=== PATIENT | female | born 1995 | race Caucasian/White ===

== ENCOUNTER → 2018-05-04 11:41 | Outpatient (CLI) | payer OTHER, MEDICAID, SELFPAY | PROVIDERS: Visit Provider Obstetrics & Gynecology | DX: Z34.91 Encounter for supervision of normal pregnancy, unspecified, first trimester (principal) | CPT/HCPCS: 87086 ==

== ENCOUNTER → 2018-05-04 11:45 | Outpatient (CLI) | payer OTHER, MEDICAID, SELFPAY ==
[2018-05-04 12:29] LABS: Add Manual Diff / Slide Review NO; Basophils Percent Auto 0.4 % (0-2); Eosinophils Percent Auto 1.4 % (2-4); Hematocrit 39.7 % (36-46); Lymphocytes Percent Auto 17.4 % (25-40); Mean Corpuscular HGB Conc 35.3 % (30-36); Mean Corpuscular Hemoglobin 31.6 PG (26-34); Mean Corpuscular Volume 89.7 fL (80-100); Monocytes Percent Auto 6.8 % (3-14); Neutrophils Absolute Auto 7000 /uL (3000-5900); Platelet Count 274 X10^3/uL (150-400); Red Blood Cell Count 4.43 X10^6/uL (4.0-5.2); Red Cell Distribution Width 12.5 % (11.6-14.8); White Blood Cell Count 9.5 X10^3/uL (4.5-11.0)
[2018-05-04 12:34] LABS: Appearance Urine UA CLEAR; Bilirubin Urine UA NEGATIVE (NEGATIVE); Color Urine UA YELLOW; Glucose Urine UA NEGATIVE (Normal); Ketones Urine UA NEGATIVE (NEGATIVE); Leukocyte Esterase Urine UA NEGATIVE (NEGATIVE); Nitrite Urine UA Negative (Negative); Occult Blood Urine UA NEGATIVE (Negative); Protein Urine UA NEGATIVE (Negative); Urobilinogen Urine UA 0.2 E.U./dL (0.2)
[2018-05-04 17:04] LABS: Hepatitis B Surface Antigen NEGATIVE s/c (NEGATIVE); Rubella Antibody IgG 15.5 IU/mL (>15)
[2018-05-04 17:21] LABS: HIV 1 and 2 Antibody NEGATIVE (NEGATIVE); Hep C Virus Ab w/Reflex Quant NEGATIVE s/c (NEGATIVE)
[2018-05-05 14:31] LABS: HSV 2 IGG AB 6.21 index (< 0.90); HSV1IGG < 0.90 index (< 0.90)
[2018-05-11 14:51] LABS: Rapid Plasma Reagin NON REACTIVE
== END ==
PROVIDERS: Visit Provider Obstetrics & Gynecology
DX: Z34.91 Encounter for supervision of normal pregnancy, unspecified, first trimester (principal)
CPT/HCPCS: 36415; 80055; 81003; 86695; 86696; 86703; 86787; 86803; 86850; 86900; 86901; 87077; 87086

== ENCOUNTER → 2018-06-01 11:56 | Outpatient (CLI) | payer OTHER, MEDICAID, SELFPAY ==
[2018-06-08 09:28] LABS: Calc Gestational Age 17.7; Cigarette Smoker N; Donated Egg NOT GIVEN; Donor Egg Age NOT GIVEN; Estriol, Free 1.04 ng/mL; Inhibin A, Dimeric 113 pg/mL; Maternal Ethnicity NOT GIVEN; Maternal Weight 149 lbs; Number of Fetuses NOT GIVEN; Previous Pregnancy Down Syndro NOT GIVEN; hCG, MoM 0.66; hCG, Serum 16.6 IU/mL
== END ==
PROVIDERS: PCP Family Medicine; Visit Provider Obstetrics & Gynecology
DX: Z34.02 Encounter for supervision of normal first pregnancy, second trimester (principal)
CPT/HCPCS: 36415; 82105; 82677; 84702; 86336

== ENCOUNTER → 2018-06-29 10:32 | Outpatient (CLI) | payer OTHER, MEDICAID, SELFPAY ==
--- NOTE | 2018-06-29 10:34 | DI.US.S_ITS ---
PROCEDURE: US OB >= 14 WEEKS FETUS INDICATIONS: Anatomy Survey OUTSIDE/PRIOR DATING DATA: Last menstrual period (LMP): Unknown. LMP-based estimated date of delivery (VENICE): N./A. First dating scan (date and location): 05/04/18. Estimated date of delivery (VENICE) from first dating scan: 11/04/18. TECHNIQUE: Real-time scanning was performed of the fetus, with image documentation and biometric measurements. Endovaginal scanning: No COMPARISON: [facility], , OB >= 14 WEEKS FETUS, 06/01/2018, 11:47. FINDINGS: General: A single living intrauterine gestation is present. Presentation: Breech. Placenta: Placental position is anterior, without previa. Amniotic fluid index: 16.6 cm, normal range is 5-24 cm. heart rate: 140 beats per minute. Maternal cervical canal: 4.2 cm long. Normal lower limit is 2.5 cm. biometrics: Biparietal diameter: 21 weeks 3 days Head circumference: 21 weeks 3 days Abdominal circumference: 21 weeks 4 days Femur length: 21 weeks 6 days Estimated gestational age from initial scan: 21 weeks 5 days Composite gestational age from present scan: 21 weeks 4 days Estimated weight and percentile: 442 g; 42% Measurement variability for biometric dating: +/- 7 days from 14 weeks to 15 weeks 6 days gestation, +/- 10 days from 16 weeks to 21 weeks 6 days gestation, +/- 2 weeks from 22 weeks to 27 weeks 6 days gestation, +/- 3 weeks for 28 weeks gestation or later. weight reference: 4500 g or EFW >90/95% is considered macrosomia or large for gestational age. EFW <10% is small for gestational age. EFW 5% or less is considered intra-uterine growth restriction. Anatomic survey: Neuro: Ventricles are non-dilated at less than 10 mm. Cisterna magna is normal at 3-11 mm. Cerebellum is normal in size and morphology. Nuchal skin fold: Normal at less than 6 mm between 14-21 weeks gestational age. Face: Nose and lips, facial profile are normal. Spine: Not well-seen. Heart: 4-chambered heart is present, with normal ventricular outflow tracts. Diaphragm: Diaphragm is intact. Stomach: Left-sided stomach is present. Kidneys: No hydronephrosis. Normal is less than 5 mm in 2nd trimester, less than 7 mm in 3rd trimester. Cord: 3-vessel cord has orthotopic insertion. Bladder: Normal in size. Extremities: All 4 extremities identified. IMPRESSION: 1. Single living IUP redemonstrated and interval growth is normal. 2. spine not well seen otherwise normal anatomy. Dictated by: Prince HOYT Interpreted: Sandra Renner MD on 06/29/2018 at 11:33 Approved by: Sandra Renner M.D. on 06/29/2018 at 12:37
== END ==
PROVIDERS: PCP Family Medicine; Visit Provider Obstetrics & Gynecology
DX: Z34.02 Encounter for supervision of normal first pregnancy, second trimester (principal); Z3A.21 21 weeks gestation of pregnancy
CPT/HCPCS: 76811

== ENCOUNTER → 2018-08-03 12:09 | Outpatient (CLI) | payer OTHER, MEDICAID, SELFPAY ==
[2018-08-03 13:55] LABS: Hematocrit 36.9 % (36-46); Hemoglobin 12.9 g/dL (12.0-16.0)
[2018-08-03 14:07] LABS: GTT (PREG) 1 Hour PP 50gm Dose 65 mg/dL (76-139)
== END ==
PROVIDERS: PCP Family Medicine; Visit Provider Obstetrics & Gynecology
DX: Z34.02 Encounter for supervision of normal first pregnancy, second trimester (principal)
CPT/HCPCS: 36415; 82950; 85014; 85018

== ENCOUNTER → 2018-10-05 11:50 | Outpatient (CLI) | payer OTHER, MEDICAID, SELFPAY ==
[2018-10-06 16:33] LABS: Strep Grp B PCR NEG for Grp B Strep
== END ==
PROVIDERS: PCP Family Medicine; Visit Provider Obstetrics & Gynecology
DX: Z34.03 Encounter for supervision of normal first pregnancy, third trimester (principal)
CPT/HCPCS: 87653

== ENCOUNTER 2018-10-28 15:06 | Outpatient (CLI) | payer OTHER, MEDICAID, SELFPAY | END 2018-10-28 16:40 | disposition home or self-care (01) | LOC: LABOR 17:27 → OB 10-31 08:43 | PROVIDERS: PCP Family Medicine; Visit Provider Obstetrics & Gynecology | DX: Z34.03 Encounter for supervision of normal first pregnancy, third trimester (principal); Z3A.39 39 weeks gestation of pregnancy | CPT/HCPCS: 59025; G0378; G0379 ==

== ENCOUNTER 2018-11-02 18:02 | Observation (INO) | payer OTHER, MEDICAID, SELFPAY | END 2018-11-02 20:15 | disposition home or self-care (01) | LOC: LABOR 18:04 | PROVIDERS: Admitting Provider Specialist; Family Provider Obstetrics & Gynecology; PCP Obstetrics & Gynecology; Visit Provider Specialist | DX: Z34.93 Encounter for supervision of normal pregnancy, unspecified, third trimester (principal) | CPT/HCPCS: 59025; G0378; G0379 ==

== ENCOUNTER 2018-11-02 23:59 | Inpatient (IN) | payer OTHER, MEDICAID, SELFPAY ==
[2018-11-03 02:08] LABS: Add Manual Diff / Slide Review NO; Basophils Absolute Auto 0 /uL (0-100); Basophils Percent Auto 0.3 % (0-2); Eosinophils Absolute Auto 100 /uL (0-450); Eosinophils Percent Auto 0.9 % (2-4); Lymphocytes Absolute Auto 1600 /uL (1100-4500); Lymphocytes Percent Auto 11.6 % (25-40); Mean Corpuscular HGB Conc 33.5 % (30-36); Mean Corpuscular Hemoglobin 28.8 PG (26-34); Mean Corpuscular Volume 86.1 fL (80-100); Monocytes Absolute Auto 1000 /uL (0-900); Neutrophils Absolute Auto 11300 /uL (1500-7000); Neutrophils Percent Auto 80.2 % (50-75); Platelet Count 283 X10^3/uL (150-400); Red Blood Cell Count 4.53 X10^6/uL (4.0-5.2); Red Cell Distribution Width 13.6 % (11.6-14.8); White Blood Cell Count 14.1 X10^3/uL (4.5-11.0)
[2018-11-03 03:06] VITALS: BP 99/54
--- NOTE | 2018-11-03 04:02 | PM.OBHP.1 ---
OB HPI Date/Time Date of admission: 11/03/18 Date Patient Seen: 11/03/18 Time Patient Seen: 04:02 History of Present Condition Chief complaint: Evaluation of Labor : 1 Para: 0 Estimated Date of Delivery: 11/04/18 Estimated Gestational Age (weeks): 39 Narrative: Staci Hu is a 23 year old female admitted in active labor History of Present care: good care and initiated at week # (15) Dating criteria: LMP confirmed by 2nd trimester US Ultrasounds: normal mid trimester US Obstetrical complications: none Preadmission Labs Blood type: O (+) positive -: Antibody screen: negative, GBS status: negative, HBsAG: negative, HIV: negative, HSV 1: negative, HSV 2: positive and RPR/VDLR: negative -: Chlamydia screen: not detected and Gonorrhea screen: not detected -: Rubella: equivocal and Varicella: immune HCAB: negative PAP: Normal Quad screen: Normal 1 hr GTT: 65 Evaluation Evaluation Baseline heart rate: 120 Variability: Moderate (11-25) monitor accelerations: Present monitor decelerations: Episodic Contraction Frequency (minutes): 3 Uterine Contraction Intensity: Moderate Category of Tracing: II Cervical dilation (cm): 9 Cervical effacement (%): 100 station: -1 Laboratory results: Laboratory Tests 11/03/18 11/03/18 00:30 00:30 WBC 14.1 H RBC 4.53 Hgb 13.0 Hct 39.0 MCV 86.1 MCH 28.8 MCHC 33.5 RDW 13.6 Plt Count 283 Neut % (Auto) 80.2 H Lymph % (Auto) 11.6 L [place] % (Auto) 7.0 Eos % (Auto) 0.9 L Baso % (Auto) 0.3 Neut # (Auto) 61315 H Lymph # (Auto) 1600 [place] # (Auto) 1000 H Eos # (Auto) 100 Baso # (Auto) 0 Blood Type O Positive Antibody Screen Negative [facility] Social History Smoking Status: Former smoker Social History Smoking Status: Former smoker Meds Allergies Allergy/AdvReac Type Severity Reaction Status Date / Time almond AdvReac Verified 11/03/18 03:58 Review of Systems Review of Systems Patient denies any signs or symptoms of preeclampsia. No leakage of fluid. Good movement. All systems reviewed & are unremarkable except as noted in HPI and below Exam Vital Signs (past 8 hours): Initial blood pressure 143/73, pulse of 81, temperature 97?- 11/03/18 03:06 Blood Pressure 99/54 L Narrative Exam Narrative: HEENT exam within normal limits. Lungs are clear to auscultation percussion. Heart is regular rate and rhythm no S3-S4 or murmurs. Abdomen is soft, nontender. is vertex. Extremities with trace edema and nontender. Objective Labs Result Diagrams: 11/03/18 00:30 Labs: Laboratory Results - last 24 hr 11/03/18 11/03/18 00:30 00:30 WBC 14.1 H RBC 4.53 Hgb 13.0 Hct 39.0 MCV 86.1 MCH 28.8 MCHC 33.5 RDW 13.6 Plt Count 283 Neut % (Auto) 80.2 H Lymph % (Auto) 11.6 L [place] % (Auto) 7.0 Eos % (Auto) 0.9 L Baso % (Auto) 0.3 Neut # (Auto) 68103 H Lymph # (Auto) 1600 [place] # (Auto) 1000 H Eos # (Auto) 100 Baso # (Auto) 0 Blood Type O Positive Antibody Screen Negative Assessment and Plan (1) 39 weeks gestation of : Current visit: Yes Status: Acute Plan: Patient received an epidural catheter for pain control. Anticipate vaginal delivery.
--- NOTE | 2018-11-03 04:09 | P.HPOB_ITS ---
OB HPI Date/Time Date of admission: 11/03/18 Date Patient Seen: 11/03/18 Time Patient Seen: 04:02 History of Present Condition Chief complaint: Evaluation of Labor : 1 Para: 0 Estimated Date of Delivery: 11/04/18 Estimated Gestational Age (weeks): 39 Narrative: Staci Hu is a 23 year old female admitted in active labor History of Present care: good care and initiated at week # (15) Dating criteria: LMP confirmed by 2nd trimester US Ultrasounds: normal mid trimester US Obstetrical complications: none Preadmission Labs Blood type: O (+) positive -: Antibody screen: negative, GBS status: negative, HBsAG: negative, HIV: negative, HSV 1: negative, HSV 2: positive and RPR/VDLR: negative -: Chlamydia screen: not detected and Gonorrhea screen: not detected -: Rubella: equivocal and Varicella: immune HCAB: negative PAP: Normal Quad screen: Normal 1 hr GTT: 65 Evaluation Evaluation Baseline heart rate: 120 Variability: Moderate (11-25) monitor accelerations: Present monitor decelerations: Episodic Contraction Frequency (minutes): 3 Uterine Contraction Intensity: Moderate Category of Tracing: II Cervical dilation (cm): 9 Cervical effacement (%): 100 station: -1 Laboratory results: Laboratory Tests 11/03/18 11/03/18 00:30 00:30 WBC 14.1 H RBC 4.53 Hgb 13.0 Hct 39.0 MCV 86.1 MCH 28.8 MCHC 33.5 RDW 13.6 Plt Count 283 Neut % (Auto) 80.2 H Lymph % (Auto) 11.6 L [place] % (Auto) 7.0 Eos % (Auto) 0.9 L Baso % (Auto) 0.3 Neut # (Auto) 01917 H Lymph # (Auto) 1600 [place] # (Auto) 1000 H Eos # (Auto) 100 Baso # (Auto) 0 Blood Type O Positive Antibody Screen Negative [facility] Social History Smoking Status: Former smoker Social History Smoking Status: Former smoker Meds Allergies Allergy/AdvReac Type Severity Reaction Status Date / Time almond AdvReac Verified 11/03/18 03:58 Review of Systems Review of Systems Patient denies any signs or symptoms of preeclampsia. No leakage of fluid. Good movement. All systems reviewed & are unremarkable except as noted in HPI and below Exam Vital Signs (past 8 hours): Initial blood pressure 143/73, pulse of 81, temperature 97?- 11/03/18 03:06 Blood Pressure 99/54 L Narrative Exam Narrative: HEENT exam within normal limits. Lungs are clear to auscultation percussion. Heart is regular rate and rhythm no S3-S4 or murmurs. Abdomen is soft, nontender. is vertex. Extremities with trace edema and nontender. Objective Labs Result Diagrams: 11/03/18 00:30 Labs: Laboratory Results - last 24 hr 11/03/18 11/03/18 00:30 00:30 WBC 14.1 H RBC 4.53 Hgb 13.0 Hct 39.0 MCV 86.1 MCH 28.8 MCHC 33.5 RDW 13.6 Plt Count 283 Neut % (Auto) 80.2 H Lymph % (Auto) 11.6 L [place] % (Auto) 7.0 Eos % (Auto) 0.9 L Baso % (Auto) 0.3 Neut # (Auto) 49294 H Lymph # (Auto) 1600 [place] # (Auto) 1000 H Eos # (Auto) 100 Baso # (Auto) 0 Blood Type O Positive Antibody Screen Negative Assessment and Plan (1) 39 weeks gestation of : Current visit: Yes Status: Acute Plan: Patient received an epidural catheter for pain control. Anticipate vaginal delivery.
--- NOTE | 2018-11-03 05:24 | PM.OBPRVD ---
Delivery date: 11/03/18 Intrapartal events: None Cervical ripening method: none Induction method: none Delivery monitor: external FHT and external uterine Route of delivery: L&D Laceration Description: Periurethral - 1st Degree Delivery repair: chromic (3-0) Estimated blood loss (mL): 150 Anesthesia type: Epidural Narrative: Patient arrived on Labor and delivery in active labor. She received an epidural catheter for pain control. heart tones category 1 to category 2 throughout labor. She was AROM for clear fluid. She delivered spontaneously, over an intact perineum. The infant was placed on the maternal abdomen. After the cord stopped pulsating the cord was clamped, cut, and cord bloods obtained. The placenta delivered spontaneously, intact, with 3 vessels. There was a first-degree right labial tear that was repaired with 3 0 chromic suture. No cervical or vaginal tears. Estimated blood loss 150 cc. Both and mother doing well. Baby 1: gender: Female Presentation: vertex position: Right Occiput Anterior Placenta delivery description: Spontaneous cord vessel description: 3 Vessels score (1 min): 8 score (5 min): 9 Plan for aftercare: Routine care
[2018-11-03] MEDS: IBUPROFEN 600 MG TABLET PO ×2 (10:15→20:38)
[2018-11-03] MEDS: LANOLIN OINT 7 GM 1 APPLIC TOP (10:19)
[2018-11-03] MEDS: DERMOPLAST SPRAY 20% 60 ML 1 SPRAY TOP (10:19)
[2018-11-03] MEDS: HYDROCODONE/ACET 5/325 TABLET 2 TAB PO (22:30)
[2018-11-04 06:51] LABS: Add Manual Diff / Slide Review NO; Basophils Absolute Auto 100 /uL (0-100); Eosinophils Absolute Auto 300 /uL (0-450); Eosinophils Percent Auto 2.5 % (2-4); Hematocrit 38.6 % (36-46); Hemoglobin 12.9 g/dL (12.0-16.0); Lymphocytes Absolute Auto 2300 /uL (1100-4500); Lymphocytes Percent Auto 19.8 % (25-40); Mean Corpuscular HGB Conc 33.4 % (30-36); Mean Corpuscular Hemoglobin 28.9 PG (26-34); Mean Corpuscular Volume 86.5 fL (80-100); Monocytes Absolute Auto 900 /uL (0-900); Monocytes Percent Auto 7.8 % (3-14); Neutrophils Absolute Auto 8100 /uL (1500-7000); Neutrophils Percent Auto 68.9 % (50-75); Platelet Count 262 X10^3/uL (150-400); Red Blood Cell Count 4.47 X10^6/uL (4.0-5.2); Red Cell Distribution Width 14.2 % (11.6-14.8); White Blood Cell Count 11.8 X10^3/uL (4.5-11.0)
--- NOTE | 2018-11-04 07:42 | PM.OBDS.1 ---
Discharge Providers Date of admission: 11/02/18 23:59 Discharge Date: 11/04/18 Primary care physician: Nila Wood MD Consults: 11/03/18 05:52 Consult to Clinic Office Assistant Routine Comment: Discharge provider: Helen Marquez MD Summary Date Patient Seen: 11/04/18 Time Patient Seen: 07:52 Procedures: Epidural catheter, vaginal delivery, repair of first-degree labial laceration Hospital Course: Patient arrived on Labor and delivery in active labor. She received an epidural catheter for pain control. She had a vaginal delivery with repair of a first-degree labial laceration. Patient is well. She has no signs or symptoms of preeclampsia. Blood pressure is 125/74, pulse 74, temperature 98.0?. Patient's abdomen is soft, nontender. Uterus is firm, at U, nontender. Repair is intact. Mild lochia. Extremities with trace edema and nontender. Patient is rubella equivocal so will receive rubella vaccine prior to discharge. She is Rh positive. Peripartum Data Delivery Method: Natural Vaginal Laceration description: Periurethral - 1st Degree complications: none 1: Gender: Female Disposition of : home Discharge Diagnosis (1) 39 weeks gestation of : Status: Acute (2) Vaginal delivery: Status: Acute Status at Discharge Functional status at discharge: independent ambulation Overall status at discharge: patient is progressing back to baseline Time Spent with Patient Total time spent providing and/or coordinating discharge services: Less than 30 minutes Objective Labs Result Diagrams: 11/04/18 06:40 Labs: Laboratory Results - last 24 hr 11/04/18 06:40 WBC 11.8 H RBC 4.47 Hgb 12.9 Hct 38.6 MCV 86.5 MCH 28.9 MCHC 33.4 RDW 14.2 Plt Count 262 Neut % (Auto) 68.9 Lymph % (Auto) 19.8 L [place] % (Auto) 7.8 Eos % (Auto) 2.5 Baso % (Auto) 1.0 Neut # (Auto) 8100 H Lymph # (Auto) 2300 [place] # (Auto) 900 Eos # (Auto) 300 Baso # (Auto) 100 Discharge Plan Discharge Plan Patient Disposition: Home Discharge Med Rec/Prescriptions Prescriptions: New hydrocodone-acetaminophen 5-325 mg Tablet 2 tab PO Q4HR PRN (Reason: Pain, Severe (7-10)) Qty: 10 RF: 0 ibuprofen 600 mg Tablet 600 mg PO Q6HR PRN (Reason: Pain, Mild (1-3)) Qty: 30 RF: 0 Follow up/Referrals: Nila Wood MD [Primary Care Provider] - 6 Weeks (Follow up appointment with Dr. Wood scheduled for 1200 on December 14.) Provider Discharge Instructions Diet: Regular Activity: Nothing in vagina for 6 weeks Skin/Wound/Dressing Care Report to your healthcare provider any signs of infection, such as:: chills, fever and increased pain Visit Report/Discharge Packet Stand Alone Forms: Discharge: Care Visit Report Forms: Stroke Signs & Symptoms Discharge Data Primary Care Provider: Nila Wood Attending Provider: Nila Wood Admit Date/Time: 11/02/18 23:59
[2018-11-04] MEDS: IBUPROFEN 600 MG TABLET PO (08:31)
[2018-11-04] MEDS: DOCUSATE 250 MG CAPSULE PO (08:31)
[2018-11-04 12:29] VITALS: BP 125/74; PULSE 74; RESP 16; TEMP 36.7
--- NOTE | 2018-11-04 13:43 | PM.OBTRLD ---
Visit Information Visit Information Date of evaluation: 11/02/18 Primary OB Provider: Nila Wood On-call OB Provider: Helen Marquez Reason for Evaluation: Yes rule out labor Vital Signs Vital Signs: Vital Signs - 8 hr 11/02/18 12:29 Temperature 36.4 C Pulse Rate 69 Respiratory Rate 16 Blood Pressure 121/77 PFSH Social History Smoking Status: Former smoker Social History Smoking Status: Former smoker Exam Vital Signs (past 8 hours): - 11/04/18 12:29 Temperature 98.0 F Pulse Rate 74 Respiratory Rate 16 Blood Pressure 125/74 Objective Labs Result Diagrams: 11/04/18 06:40 Labs: Laboratory Results - last 24 hr 11/04/18 06:40 WBC 11.8 H RBC 4.47 Hgb 12.9 Hct 38.6 MCV 86.5 MCH 28.9 MCHC 33.4 RDW 14.2 Plt Count 262 Neut % (Auto) 68.9 Lymph % (Auto) 19.8 L [place] % (Auto) 7.8 Eos % (Auto) 2.5 Baso % (Auto) 1.0 Neut # (Auto) 8100 H Lymph # (Auto) 2300 [place] # (Auto) 900 Eos # (Auto) 300 Baso # (Auto) 100 Evaluation Evaluation Baseline heart rate: 120 Variability: Moderate (11-25) monitor accelerations: Present monitor decelerations: Absent Contraction Frequency (minutes): 3 Uterine Contraction Intensity: Moderate Category of Tracing: I Cervical dilation (cm): 2 Cervical effacement (%): 80 station: -1 Laboratory results: Laboratory Tests WBC RBC Hgb Hct MCV MCH MCHC RDW Plt Count Neut % (Auto) Lymph % (Auto) [place] % (Auto) Eos % (Auto) Baso % (Auto) Neut # (Auto) Lymph # (Auto) [place] # (Auto) Eos # (Auto) Baso # (Auto) Blood Type Antibody Screen Diagnosis, Plan/Disposition Final Diagnosis (1) Premature uterine contractions: Current Visit: Yes Status: Acute Plan/Disposition Plan: Patient likely in early labor she will go home and return if her contractions increase or she ruptured her bag of water. OB Disposition: home
== END 2018-11-04 14:12 | disposition home or self-care (01) | DRG 560 ==
PROVIDERS: Specialist; Admitting Provider Obstetrics & Gynecology; Family Provider Obstetrics & Gynecology; PCP Obstetrics & Gynecology; Visit Provider Obstetrics & Gynecology
DX: O70.0 First degree perineal laceration during delivery (principal); Z3A.39 39 weeks gestation of pregnancy; Z37.0 Single live birth
CPT/HCPCS: 01967; 36415; 59025; 59050; 59409; 85025; 86850; 86900; 86901; G0378; G0379